=== PATIENT | female | born 1965 | race Asian ===

== ENCOUNTER 2022-05-03 05:54 | Day surgery (SDC) | payer OTHER ==
[2022-04-29 14:56] VITALS: BMI 24.7
[2022-05-03] MEDS ORDERED: BUPIVACAINE HCL/PF 0.25% (2.5MG/ML) 10 ML VIAL ONE (07:12)
[2022-05-03] MEDS ORDERED: LIDOCAINE HCL 1%, 10 MG/ML (20ML VIAL) ONE (07:13)
[2022-05-03] MEDS ORDERED: SUCCINYLCHOLINE CHLORIDE 200 MG/10 ML SYRINGE ONE (07:27)
[2022-05-03] MEDS ORDERED: PROPOFOL 20 ML ONE ×3 (07:27→09:23)
[2022-05-03] MEDS ORDERED: ONDANSETRON 4 MG/2 ML VIAL ONE ×2 (07:27→09:33)
[2022-05-03] MEDS ORDERED: DEXAMETHASONE SOD PHOSPHATE 4 MG/1 ML VIAL ONE ×2 (07:27→09:33)
[2022-05-03] MEDS ORDERED: MIDAZOLAM HCL 2 MG/2 ML SINGLE DOSE VIAL ONE (07:27)
[2022-05-03] MEDS ORDERED: KETOROLAC TROMETHAMINE 30 MG/1 ML VIAL ONE ×2 (07:49→09:33)
[2022-05-03] MEDS ORDERED: ceFAZolin SODIUM 1 GM VIAL ONE ×2 (07:51→09:33)
[2022-05-03 08:59] VITALS: BP 121/74; PULSE 57; TEMP 98
== END 2022-05-03 09:24 | disposition home or self-care (01) ==
LOC: FASU 05:54
PROVIDERS: ATTEND Orthopaedic Surgery
PROC: 0LN33ZZ Release Right Upper Arm Tendon, Percutaneous Approach (ICD-10-PCS; principal; 2022-05-03 08:00)
DX: M77.11 Lateral epicondylitis, right elbow (principal)